=== PATIENT | female | born 1980 | race Caucasian/White ===

== ENCOUNTER 2017-12-19 12:42 | Emergency (ER) | payer BC ==
[~2017-12-19] VITALS: Ht 170.2 cm; Wt 115.7 kg
[2017-12-19 12:51] VITALS: BP 141/81
[2017-12-19] MEDS ORDERED: LORazepam 1 MG TABLET PO ONE (13:15)
--- NOTE | 2017-12-19 13:20 | RAD ---
EXAM: Chest, single view. HISTORY: Chest pain. COMPARISON: None. FINDINGS: A frontal view of the chest is obtained. There is no infiltrate, effusion or pneumothorax. The heart is normal in size. IMPRESSION: No acute pulmonary finding. Electronically signed by: Michaela Zamora MD (12/19/2017 1:17 PM) [id number]
[2017-12-19 13:55] LABS: ALBUMIN 3.6 g/dL (3.4-5.0); CALCIUM 9.2 mg/dL (8.5-10.1); CREATININE 0.9 mg/dL (0.6-1.0); DIRECT BILIRUBIN 0.1 mg/dL (0.0-0.2); GFR 70.1; POTASSIUM 3.8 mmol/L (3.5-5.1); TOTAL BILIRUBIN 0.5 mg/dL (0.2-1.0)
[2017-12-19 13:57] LABS: BASO % 0 % (0-3); EOS % 0 % (0-3); HEMATOCRIT 40.3 % (36.0-47.0); HEMOGLOBIN 13.7 g/dL (12.0-15.5); LYMPH # 1.1 x10^3/uL (1.0-4.8); LYMPH % 11 % (24-48); MEAN CORPUSCULAR HEMOGLOBIN 29 pg (25-35); MEAN CORPUSCULAR HGB CONC 34 g/dL (31-37); MEAN CORPUSCULAR VOLUME 86 fL (79-100); MONO # 0.3 x10^3/uL (0.0-1.1); MONO % 3 % (0-9); NEUT # 8.7 x10^3uL (1.8-7.7); NEUT % 86 % (31-73); PLATELET COUNT 145 x10^3/uL (140-400); RED CELL DISTRIBUTION WIDTH 14.1 % (11.5-14.5); WHITE BLOOD COUNT 10.1 x10^3/uL (4.0-11.0)
[2017-12-19] MEDS ORDERED: HYDR10TA2 PO (14:51)
--- NOTE | 2017-12-19 14:51 | PHYS DOC ---
Past History Past Medical History: Anxiety Past Surgical History: No Surgical History Drug Use: None Adult General Chief Complaint Chief Complaint: short of breath HPI HPI This is a pleasant 29-year-old female presenting to the emergency department with an episode of lightheadedness shortness of breath that started while she was at the office. She had a brief episode of double vision with a short heaviness of the chest that improved after she walked around the office. She reports it, "feels like an anxiety attack". She reports "tingling all over". She took a muscle relaxer last night Flexeril but has not taken anything today. She has a past medical history of anxiety and chronic neck pain. Past surgical history 2. Allergies none. Social history smokes. Denies drinking or IV drug use. She currently denies any symptoms that she had at the office but does feel mildly anxious. Review of systems is negative for chest pain abdominal pain nausea vomiting diaphoresis. All other review of systems is negative unless otherwise noted in history of present illness. ED course: 29-year-old female presenting to the emergency department today with an episode of shortness of breath. On arrival she is afebrile with mild high blood pressure. Saturating well on room air. Heart rate mildly high but technically not tachycardic. On examination she is alert and well-appearing without any distress. Lungs are clear to auscultation bilaterally. Heart rate is regular with a regular rhythm. No murmur. Abdomen is soft and nontender. Patient does appeared mildly anxious. Otherwise unremarkable examination. Blood work unremarkable. Chest x-ray unremarkable. Patient was given Ativan here in the emergency room which improved her symptoms significantly. The patient was then discharged home in stable condition to follow up with their primary care physician over the next 2-3 days. They were to return if their symptoms worsened or if they were concerned for any reason. [id number] discharge instructions and return precautions were given. Patient's questions were answered to their satisfaction. Patient is comfortable with plan. Of note, dobby looms pegger Gwen wrote the patient has blurred vision at 1326 in the nursing notes. Patient denies blurred vision in the emergency department. Her symptoms were very brief and had totally resolved prior to arrival and did not return while she was in the emergency room. The patient does not have double vision in the emergency department either. This was a brief episode less than 10 seconds which resolved spontaneously. Review of Systems Review of Systems SEE ABOVE. Current Medications Current Medications Current Medications Medications (Trade) Dose Ordered Sig/Cassidy Start Time Stop Time Status Last Admin Dose Admin Lorazepam (Ativan) 1 mg 1X ONCE 12/19/17 13:15 12/19/17 13:16 DC 12/19/17 13:10 1 MG Allergies Allergies Allergies Coded Allergies Type Severity Reaction Last Updated Verified No Known Drug Allergies 12/19/17 No Physical Exam Physical Exam SEE ABOVE Constitutional: Well developed, well nourished, no acute distress, non-toxic appearance. [] HENT: Normocephalic, atraumatic, bilateral external ears normal, oropharynx moist, no oral exudates, nose normal. [] Eyes: PERRLA, EOMI, conjunctiva normal, no discharge. [] Neck: Normal range of motion, no tenderness, supple, no stridor. [] Cardiovascular:Heart rate regular rhythm, no murmur [] Lungs & Thorax: Bilateral breath sounds clear to auscultation [] Abdomen: Bowel sounds normal, soft, no tenderness, no masses, no pulsatile masses. [] Skin: Warm, dry, no erythema, no rash. [] Back: No tenderness, no CVA tenderness. [] Extremities: No tenderness, no cyanosis, no clubbing, ROM intact, no edema. [] Neurologic: Alert and oriented X 3, normal motor function, normal sensory function, no focal deficits noted. [] Psychologic: Affect normal, judgement normal, mood normal. [] Current Patient Data Vital Signs Vital Signs Date Time Temp Pulse Resp B/P (MAP) Pulse Ox O2 Delivery O2 Flow Rate FiO2 12/19/17 12:51 98.3 95 20 98 Lab Results Laboratory Tests Test 12/19/17 13:27 White Blood Count 10.1 x10^3/uL (4.0-11.0) Red Blood Count 4.70 x10^6/uL (3.50-5.40) Hemoglobin 13.7 g/dL (12.0-15.5) Hematocrit 40.3 % (36.0-47.0) Mean Corpuscular Volume 86 fL (79-100) Mean Corpuscular Hemoglobin 29 pg (25-35) Mean Corpuscular Hemoglobin Concent 34 g/dL (31-37) Red Cell Distribution Width 14.1 % (11.5-14.5) Platelet Count 145 x10^3/uL (140-400) Neutrophils (%) (Auto) 86 % (31-73) H Lymphocytes (%) (Auto) 11 % (24-48) L Monocytes (%) (Auto) 3 % (0-9) Eosinophils (%) (Auto) 0 % (0-3) Basophils (%) (Auto) 0 % (0-3) Neutrophils # (Auto) 8.7 x10^3uL (1.8-7.7) H Lymphocytes # (Auto) 1.1 x10^3/uL (1.0-4.8) Monocytes # (Auto) 0.3 x10^3/uL (0.0-1.1) Eosinophils # (Auto) 0.0 x10^3/uL (0.0-0.7) Basophils # (Auto) 0.0 x10^3/uL (0.0-0.2) Sodium Level 138 mmol/L (136-145) Potassium Level 3.8 mmol/L (3.5-5.1) Chloride Level 105 mmol/L (98-107) Carbon Dioxide Level 22 mmol/L (21-32) Anion Gap 11 (6-14) Blood Urea Nitrogen 8 mg/dL (7-20) Creatinine 0.9 mg/dL (0.6-1.0) Estimated GFR (Cockcroft-Gault) 70.1 Glucose Level 103 mg/dL (70-99) H Calcium Level 9.2 mg/dL (8.5-10.1) Total Bilirubin 0.5 mg/dL (0.2-1.0) Direct Bilirubin 0.1 mg/dL (0.0-0.2) Aspartate Amino Transferase (AST) 11 U/L (15-37) L Alanine Aminotransferase (ALT) 14 U/L (14-59) Alkaline Phosphatase 79 U/L (46-116) Troponin I Quantitative < 0.017 ng/mL (0-0.055) Total Protein 7.0 g/dL (6.4-8.2) Albumin 3.6 g/dL (3.4-5.0) Lipase 66 U/L (73-393) L EKG EKG [] Radiology/Procedures Radiology/Procedures [] Course & Med Decision Making Course & Med Decision Making Pertinent Labs and Imaging studies reviewed. (See chart for details) [] Dragon Disclaimer Dragon Disclaimer This electronic medical record was generated, in whole or in part, using a voice recognition dictation system. Departure Departure: Impression: Primary Impression: Shortness of breath Disposition: HOME, SELF-CARE Condition: STABLE Referrals: BENITO RUBIO (PCP) Patient Instructions: Shortness of Breath, [id number] Additional Instructions: Thank you for allowing us to participate in your care today. Followup with your primary care physician in 3 days if your symptoms do not improve. Call your Primary Doctor tomorrow and inform them of your visit today. If you do not have a primary care provider you can ask for a list of our primary care providers. Return to the emergency department you have any new or concerning findings. This should be evaluated by the primary care physician and any necessary consulting services for continued management within a few days after discharge. Return to emergency room if you have any new or concerning symptoms including but not limited to fever, chills, nausea, vomiting, intractable pain, any new rashes, chest pain, shortness of air, uncontrolled bleeding, difficulty breathing, and/or vision loss. Scripts Hydroxyzine Hcl (HYDROXYZINE HCL) 10 Mg Tablet 10 MG PO PRN QHS Y for ANXIETY / AGITATION, #7 TAB Prov: DAVID SANCHEZ MD 12/19/17 DAVID SANCHEZ MD Dec 19, 2017 14:51
== END 2017-12-19 15:05 | disposition home or self-care (01) ==
LOC: ER 12:42
DX: R06.02 Shortness of breath (principal); R42 Dizziness and giddiness; F41.9 Anxiety disorder, unspecified; G89.29 Other chronic pain
CPT/HCPCS: 36415; 71045; 80048; 80076; 83690; 84484; 85025; 99285-25

== ENCOUNTER 2019-01-26 15:42 | Emergency (ER) | payer BC ==
[~2019-01-26] VITALS: Ht 170.2 cm; Wt 112.6 kg
[~2019-01-26 15:42] MED LIST: HYDR10TA2 PO
[2019-01-26] MEDS ORDERED: IV NORMAL SALINE 1,000ML 1,000 ML IV SCH (16:13)
[2019-01-26] MEDS ORDERED: ASPIRIN 81 MG TAB.CHEW PO ONE (16:15)
--- NOTE | 2019-01-26 16:20 | PHYS DOC ---
Past History Past Medical History: Anxiety (PRIMO DIALLO MD) Past Surgical History: No Surgical History (PRIMO DIALLO MD) Alcohol Use: Occasionally Drug Use: None (PRIMO DIALLO MD) Adult General Chief Complaint Chief Complaint: DIZZY/LIGHT HEADED HPI HPI Patient is a 38 year old female who presents with complaint of sudden onset dizziness, shortness of breath, and tingling through the shoulders. Patient states that her symptoms started shortly prior to arrival. Patient states that she started to feel very lightheaded and short of breath, but started feeling tingling started in her right shoulder and ran across to her left shoulder. Denied any substernal chest pain. States that her shortness of breath comes and goes. Denies any history of known cardiac or pulmonary disease. Does have history of anxiety and is currently on Zoloft medication. Notes that she recently experienced the in the family and states that they had a yesterday for her [id number]. States that this could be contributing to her current stress levels. Has not taken any medications for her symptoms since onset. States overall her symptoms have improved but still feels very anxious at this time. (PRIMO DIALLO MD) Review of Systems Review of Systems Constitutional: Denies fever or chills [] Eyes: Denies change in visual acuity, redness, or eye pain [] HENT: Denies nasal congestion or sore throat [] Respiratory: Shortness of breath[] Cardiovascular: Denies chest pain or edema[] GI: Denies abdominal pain, nausea, vomiting, bloody stools or diarrhea [] : Denies dysuria or hematuria [] Musculoskeletal: Denies back pain or joint pain [] Integument: Denies rash or skin lesions [] Neurologic: Dizziness, lightheadedness, tingling in her shoulders and bilateral upper extremities, denies focal weakness [] All other systems were reviewed and found to be within normal limits, except as documented in this note. (PRIMO DIALLO MD) Current Medications Current Medications Current Medications Medications (Trade) Dose Ordered Sig/Cassidy Start Time Stop Time Status Last Admin Dose Admin Aspirin (Children'S Aspirin) 324 mg 1X ONCE 01/26/19 16:15 01/26/19 16:16 UNV Lorazepam (Ativan) 1 mg 1X ONCE 01/26/19 16:15 01/26/19 16:16 UNV Sodium Chloride 1,000 ml @ 1,000 mls/hr Q1H 01/26/19 16:13 01/26/19 17:12 UNV (PRIMO DIALLO MD) Allergies Allergies Allergies Coded Allergies Type Severity Reaction Last Updated Verified No Known Drug Allergies 12/19/17 No (PRIMO DIALLO MD) Physical Exam Physical Exam Constitutional: Alert, afebrile, appears anxious. [] HENT: Normocephalic, atraumatic, bilateral external ears normal, oropharynx moist, no oral exudates, nose normal. [] Eyes: PERRLA, EOMI, conjunctiva normal, no discharge. [] Neck: Normal range of motion, no tenderness, supple, no stridor. [] Cardiovascular:Heart rate regular rhythm, no murmur [] Lungs & Thorax: Bilateral breath sounds clear to auscultation [] Abdomen: Bowel sounds normal, soft, no tenderness, no masses, no pulsatile masses. [] Skin: Warm, dry, no erythema, no rash. [] Back: No tenderness, no CVA tenderness. [] Extremities: No tenderness, no cyanosis, no clubbing, ROM intact, no edema. [] Neurologic: Alert and oriented X 3, normal motor function, normal sensory function, no focal deficits noted. [] (PRIMO DIALLO MD) Current Patient Data Vital Signs Vital Signs Date Time Temp Pulse Resp B/P (MAP) Pulse Ox O2 Delivery O2 Flow Rate FiO2 01/26/19 15:52 98.3 82 18 99 Room Air 01/26/19 15:51 170/100 (123) Lab Results Laboratory Tests Test 01/26/19 16:02 White Blood Count 8.9 x10^3/uL Red Blood Count 4.32 x10^6/uL Hemoglobin 12.4 g/dL Hematocrit 37.0 % Mean Corpuscular Volume 86 fL Mean Corpuscular Hemoglobin 29 pg Mean Corpuscular Hemoglobin Concent 33 g/dL Red Cell Distribution Width 14.5 % Platelet Count 174 x10^3/uL Neutrophils (%) (Auto) 64 % Lymphocytes (%) (Auto) 29 % Monocytes (%) (Auto) 4 % Eosinophils (%) (Auto) 2 % Basophils (%) (Auto) 1 % Neutrophils # (Auto) 5.7 x10^3uL Lymphocytes # (Auto) 2.6 x10^3/uL Monocytes # (Auto) 0.4 x10^3/uL Eosinophils # (Auto) 0.2 x10^3/uL Basophils # (Auto) 0.1 x10^3/uL D-Dimer (Abbie) 0.27 mg/L Sodium Level 142 mmol/L Potassium Level 3.5 mmol/L Chloride Level 106 mmol/L Carbon Dioxide Level 25 mmol/L Anion Gap 11 Blood Urea Nitrogen 8 mg/dL Creatinine 0.9 mg/dL Estimated GFR (Cockcroft-Gault) 69.7 BUN/Creatinine Ratio 9 Glucose Level 96 mg/dL Calcium Level 9.1 mg/dL Magnesium Level 1.9 mg/dL Total Bilirubin 0.5 mg/dL Aspartate Amino Transf (AST/SGOT) 14 U/L Alanine Aminotransferase (ALT/SGPT) 15 U/L Alkaline Phosphatase 78 U/L Creatine Kinase 75 U/L Creatine Kinase MB (Mass) < 0.5 ng/mL Creatine Kinase MB Relative Index 0.7 % Troponin I Quantitative < 0.017 ng/mL Total Protein 6.9 g/dL Albumin 3.5 g/dL Albumin/Globulin Ratio 1.0 Current Medications Medications (Trade) Dose Ordered Sig/Cassidy Route PRN Reason Start Time Stop Time Status Last Admin Dose Admin Aspirin (Children'S Aspirin) 324 mg 1X ONCE PO 01/26/19 16:15 01/26/19 16:19 DC 01/26/19 16:28 Lorazepam (Ativan) 1 mg 1X ONCE IV 01/26/19 16:15 01/26/19 16:19 DC 01/26/19 16:28 Sodium Chloride 1,000 ml @ 1,000 mls/hr Q1H IV 01/26/19 16:13 01/26/19 17:12 DC 01/26/19 16:28 (PRIMO DIALLO MD) EKG EKG Interpreted by me: Heart rate 69, sinus rhythm, normal intervals, normal axis, no acute ST/T-wave abnormalities present[] (PRIOM DIALLO MD) EKG My interpretation of EKG completed at 1811 hrs. shows a sinus rhythm at 79 bpm. There are some nonspecific contour changes anterior lateral leads. Changes are felt to be due to repositioning of leads from the first EKG. 2nd Trop. pending at this time. (ARISTEO NO MD) Radiology/Procedures Radiology/Procedures [address] [id number] IMAGING REPORT Signed PATIENT: YAHIR BRIGGS ACCOUNT: [id number] : 1980 LOCATION: ER AGE: 38 SEX: F EXAM STATUS: REG ER ORD. PHYSICIAN: PRIMO DIALLO MD REASON: dizziness, shortness of breath PROCEDURE: PORTABLE CHEST 1V PORTABLE CHEST 1V Clinical Indication: dizziness, chest pain Comparison: AP chest December 19, 2017. Findings: The cardiomediastinal silhouette is normal. Lungs are clear. There is no pneumothorax. No pleural effusion is appreciated. No acute bone abnormality. IMPRESSION: No acute cardiopulmonary process. Electronically signed by: Delvis Damon MD (01/26/2019 4:35 PM) [id number] DICTATED AND SIGNED BY: DELVIS DAMON MD DATE: 01/26/19 5208 CC: PRIMO DIALLO MD; BENITO RUBIO ~ [] (PRIMO DIALLO MD) Course & Med Decision Making Course & Med Decision Making Pertinent Labs and Imaging studies reviewed. (See chart for details) HEART score is 1, placing patient in low risk category for major acute cardiac event. Patient was treated with aspirin and Ativan. On reevaluation symptoms have completely resolved at this time. The patient is due to have a second set of cardiac enzymes and EKG for rule out of acute myocardial ischemia. This will be followed up by Dr. No who accepted care of patient at 1739.[] (PRIMO DIALLO MD) Course & Med Decision Making Pt. reporting she feels much better. Pt. states it has been a very stress full week with of brother in law and surrounding events. Patient declining admission. Patient encouraged not to smoke. Patient encouraged take a daily aspirin. Patient encouraged to return if any concerns tonight. Patient follow-up primary care. Reviewed the patient feels did not normally have classic signs of NC. Must be very cautious and return if any concerns. Patient has no history of family members with early onset coronary artery disease. Patient does smoke. Patient's heart score is 1-2. advised he will bring her back immediately if any problems. (ARISTEO NO MD) Dragon Disclaimer Dragon Disclaimer This electronic medical record was generated, in whole or in part, using a voice recognition dictation system. (PRIMO DIALLO MD) Departure Departure: Impression: Primary Impression: Acute stress reaction Referrals: BENITO RUBIO (PCP) Discharge Summary Visit Information Final Diagnosis Problems Medical Problems: (1) Acute stress reaction Status: Acute (ARISTEO NO MD) Brief Hospital Course Allergies Allergies Coded Allergies Type Severity Reaction Last Updated Verified No Known Drug Allergies 12/19/17 No Vital Signs Vital Signs Date Time Temp Pulse Resp B/P (MAP) Pulse Ox O2 Delivery O2 Flow Rate FiO2 01/26/19 18:52 76 18 132/57 (82) 99 Room Air 01/26/19 15:52 98.3 Lab Results Laboratory Tests Test 01/26/19 16:02 01/26/19 17:08 01/26/19 17:52 White Blood Count 8.9 x10^3/uL (4.0-11.0) Red Blood Count 4.32 x10^6/uL (3.50-5.40) Hemoglobin 12.4 g/dL (12.0-15.5) Hematocrit 37.0 % (36.0-47.0) Mean Corpuscular Volume 86 fL (79-100) Mean Corpuscular Hemoglobin 29 pg (25-35) Mean Corpuscular Hemoglobin Concent 33 g/dL (31-37) Red Cell Distribution Width 14.5 % (11.5-14.5) Platelet Count 174 x10^3/uL (140-400) Neutrophils (%) (Auto) 64 % (31-73) Lymphocytes (%) (Auto) 29 % (24-48) Monocytes (%) (Auto) 4 % (0-9) Eosinophils (%) (Auto) 2 % (0-3) Basophils (%) (Auto) 1 % (0-3) Neutrophils # (Auto) 5.7 x10^3uL (1.8-7.7) Lymphocytes # (Auto) 2.6 x10^3/uL (1.0-4.8) Monocytes # (Auto) 0.4 x10^3/uL (0.0-1.1) Eosinophils # (Auto) 0.2 x10^3/uL (0.0-0.7) Basophils # (Auto) 0.1 x10^3/uL (0.0-0.2) D-Dimer (Abbie) 0.27 mg/L (0.00-0.50) Sodium Level 142 mmol/L (136-145) Potassium Level 3.5 mmol/L (3.5-5.1) Chloride Level 106 mmol/L (98-107) Carbon Dioxide Level 25 mmol/L (21-32) Anion Gap 11 (6-14) Blood Urea Nitrogen 8 mg/dL (7-20) Creatinine 0.9 mg/dL (0.6-1.0) Estimated GFR (Cockcroft-Gault) 69.7 BUN/Creatinine Ratio 9 (6-20) Glucose Level 96 mg/dL (70-99) Calcium Level 9.1 mg/dL (8.5-10.1) Magnesium Level 1.9 mg/dL (1.8-2.4) Total Bilirubin 0.5 mg/dL (0.2-1.0) Aspartate Amino Transf (AST/SGOT) 14 U/L (15-37) Alanine Aminotransferase (ALT/SGPT) 15 U/L (14-59) Alkaline Phosphatase 78 U/L (46-116) Creatine Kinase 75 U/L (26-192) Creatine Kinase MB (Mass) < 0.5 ng/mL (0.0-3.6) Creatine Kinase MB Relative Index 0.7 % (0-4) Troponin I Quantitative < 0.017 ng/mL (0-0.055) < 0.017 ng/mL (0-0.055) Total Protein 6.9 g/dL (6.4-8.2) Albumin 3.5 g/dL (3.4-5.0) Albumin/Globulin Ratio 1.0 (1.0-1.7) Urine Collection Type Unknown Urine Color Yellow Urine Clarity Hazy Urine pH 6.5 Urine Specific [place] 1.015 Urine Protein Neg (NEG-TRACE) Urine Glucose (UA) Neg mg/dL (NEG) Urine Ketones (Stick) Neg mg/dL (NEG) Urine Blood Neg (NEG) Urine Nitrite Neg (NEG) Urine Bilirubin Neg (NEG) Urine Urobilinogen Dipstick 0.2 mg/dL (0.2 mg/dL) Urine Leukocyte Esterase Neg (NEG) Urine RBC 0 /HPF (0-2) Urine WBC 0 /HPF (0-4) Urine Squamous Epithelial Cells Few /LPF Urine Bacteria Few /HPF (0-FEW) Urine Opiates Screen Neg (NEG) Urine Methadone Screen Neg (NEG) Urine Barbiturates Neg (NEG) Urine Phencyclidine Screen Neg (NEG) Urine Amphetamine/Methamphetamine Neg (NEG) Urine Benzodiazepines Screen Neg (NEG) Urine Cocaine Screen Neg (NEG) Urine Cannabinoids Screen Neg (NEG) Urine Ethyl Alcohol Neg (NEG) Brief Hospital Course Ms. Briggs is a 38 old female who presented with Stress reaction. (ARISTEO NO MD) Discharge Information Condition at Discharge: Improved, Stable Disposition/Orders: D/C to Home Dischare Medications Current Medications Aspirin (Children'S Aspirin) 324 mg 1X ONCE PO Last administered on 01/26/19at 16:28; Start 01/26/19 at 16:15; Stop 01/26/19 at 16:19; Status DC Lorazepam (Ativan) 1 mg 1X ONCE IV Last administered on 01/26/19at 16:28; Start 01/26/19 at 16:15; Stop 01/26/19 at 16:19; Status DC Sodium Chloride 1,000 ml @ 1,000 mls/hr Q1H IV Last administered on 01/26/19at 16:28; Start 01/26/19 at 16:13; Stop 01/26/19 at 17:12; Status DC Active Scripts Active Hydroxyzine Hcl 10 Mg Tablet 10 Mg PO PRN QHS PRN (ARISTEO NO MD) Dragon Disclaimer This chart was dictated in whole or in part using Voice Recognition software in a busy, high-work load, and often noisy Emergency Department environment. It may contain unintended and wholly unrecognized errors or omissions. (ARISTEO NO MD) PRIMO DIALLO MD Jan 26, 2019 16:20 ARISTEO NO MD Jan 26, 2019 18:25
[2019-01-26 16:30] LABS: BASO # 0.1 x10^3/uL (0.0-0.2); BASO % 1 % (0-3); EOS # 0.2 x10^3/uL (0.0-0.7); EOS % 2 % (0-3); HEMOGLOBIN 12.4 g/dL (12.0-15.5); LYMPH # 2.6 x10^3/uL (1.0-4.8); LYMPH % 29 % (24-48); MEAN CORPUSCULAR HEMOGLOBIN 29 pg (25-35); MEAN CORPUSCULAR HGB CONC 33 g/dL (31-37); MEAN CORPUSCULAR VOLUME 86 fL (79-100); MONO # 0.4 x10^3/uL (0.0-1.1); MONO % 4 % (0-9); NEUT # 5.7 x10^3uL (1.8-7.7); NEUT % 64 % (31-73); PLATELET COUNT 174 x10^3/uL (140-400); RED BLOOD COUNT 4.32 x10^6/uL (3.50-5.40); RED CELL DISTRIBUTION WIDTH 14.5 % (11.5-14.5); WHITE BLOOD COUNT 8.9 x10^3/uL (4.0-11.0)
--- NOTE | 2019-01-26 16:38 | RAD ---
PORTABLE CHEST 1V Clinical Indication: dizziness, chest pain Comparison: AP chest December 19, 2017. Findings: The cardiomediastinal silhouette is normal. Lungs are clear. There is no pneumothorax. No pleural effusion is appreciated. No acute bone abnormality. IMPRESSION: No acute cardiopulmonary process. Electronically signed by: Adrián Damon MD (01/26/2019 4:35 PM) [id number]
[2019-01-26 16:57] LABS: ALBUMIN 3.5 g/dL (3.4-5.0); ALK PHOS 78 U/L (46-116); ALT (SGPT) 15 U/L (14-59); ANION GAP 11 (6-14); AST (SGOT) 14 U/L (15-37); BLOOD UREA NITROGEN 8 mg/dL (7-20); BUN/CREATININE RATIO 9 (6-20); CALCIUM 9.1 mg/dL (8.5-10.1); CARBON DIOXIDE 25 mmol/L (21-32); CHLORIDE 106 mmol/L (98-107); CREATININE 0.9 mg/dL (0.6-1.0); GFR 69.7; GLUCOSE 96 mg/dL (70-99); MAGNESIUM 1.9 mg/dL (1.8-2.4); POTASSIUM 3.5 mmol/L (3.5-5.1); SODIUM 142 mmol/L (136-145); TOTAL BILIRUBIN 0.5 mg/dL (0.2-1.0); TOTAL PROTEIN 6.9 g/dL (6.4-8.2)
[2019-01-26 17:38] LABS: AMPHETAMINE/METHAMPHETAMINE NEG (NEG); BARBITURATES NEG (NEG); BENZODIAZEPINES NEG (NEG); CANNABINOIDS NEG (NEG); COCAINE NEG (NEG); METHADONE NEG (NEG); OPIATES NEG (NEG); PHENCYCLIDINE NEG (NEG)
[2019-01-26 17:40] LABS: BILIRUBIN,URINE NEG (NEG); CLARITY,URINE HAZY; COLOR,URINE YELLOW; GLUCOSE,URINE NEG (NEG)
[2019-01-26 17:41] LABS: BACTERIA,URINE FEW /HPF (0-FEW); NITRITE,URINE NEG (NEG); RBC,URINE 0 /HPF (0-2); SQUAMOUS EPITHELIAL CELL,UR FEW /LPF; UROBILINOGEN,URINE 0.2 mg/dL (0.2 mg/dL); WBC,URINE 0 /HPF (0-4)
[2019-01-26 18:52] VITALS: BP 132/57
--- NOTE | 2019-01-27 17:09 | EKG ---
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
--- NOTE | 2019-01-27 17:09 | EKG ---
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 Electronically Signed On 01-31-2019 12:12:54 CDT by Wil Carpio
== END 2019-01-26 18:53 | disposition home or self-care (01) ==
LOC: ER 15:42
DX: F43.0 Acute stress reaction (principal); R42 Dizziness and giddiness; F41.9 Anxiety disorder, unspecified
CPT/HCPCS: 36415; 71045; 80053; 80307; 81001; 82553; 83735; 84484; 85025; 85379; 93005; 96361; 96374; 99285; J2060; J7030

== ENCOUNTER 2020-02-14 14:30 | Emergency (ER) | payer BC ==
[~2020-02-14] VITALS: Ht 175.3 cm; Wt 118.5 kg
[2020-02-14] MEDS ORDERED: KETOROLAC 30 MG/ML VIAL. IVP ONE (15:00)
--- NOTE | 2020-02-14 15:02 | PHYS DOC ---
Past History Past Medical History: Anxiety, High Cholesterol Past Surgical History: Smoking: Cigarettes Alcohol Use: Occasionally Drug Use: None General Adult EDM: Chief Complaint: CHEST PAIN HPI: HPI: Patient is a 39-year-old female who presents to the emergency department for evaluation. She states that for the past several days she has been having constant left upper chest discomfort, worse with palpation, and feeling somewhat like her typical anxiety attacks, although she states her Valium did not help her today. She has not had any nausea, vomiting, diaphoresis, pleuritic chest pain, exertional pain, dizziness or lightheadedness. She has no family history of premature onset coronary artery disease. There are no alleviating or exacerbating factors to her symptoms except as noted above. Review of Systems: Review of Systems: Constitutional: Denies fever or chills Eyes: Denies change in visual acuity HENT: Denies nasal congestion or sore throat Respiratory: Denies cough or shortness of breath Cardiovascular: Denies orthopnea or edema GI: Denies abdominal pain, nausea, vomiting, bloody stools or diarrhea : Denies dysuria Musculoskeletal: Denies back pain or joint pain Integument: Denies rash Neurologic: Denies headache, focal weakness or sensory changes Endocrine: Denies polyuria or polydipsia Lymphatic: Denies swollen glands Psychiatric: Denies depression or anxiety Heart Score: HEART Score for Chest Pain: HEART Score for Chest Pain Response (Comments) Value History Slighlty/Non-Suspicious 0 ECG Normal 0 Age < 45 0 Risk Factors >3 Risk Factors or Hx CAD (Smoking, hyperlipidemia, obesity) 2 Troponin < Normal Limit 0 Total 2 Risk Factors: Risk Factors: DM, Current or recent (<one month) smoker, HTN, HLP, family history of CAD, obesity. Risk Scores: Score 0 - 3: 2.5% MACE over next 6 weeks - Discharge Home Score 4 - 6: 20.3% MACE over next 6 weeks - Admit for Clinical Observation Score 7 - 10: 72.7% MACE over next 6 weeks - Early Invasive Strategies Current Medications: Current Meds: Current Medications Medications (Trade) Dose Ordered Sig/Cassidy Start Time Stop Time Status Last Admin Dose Admin Ketorolac Tromethamine (Toradol 30mg Vial) 30 mg 1X ONCE 02/14/20 15:00 02/14/20 15:01 Allergies: Allergies: Allergies Coded Allergies Type Severity Reaction Last Updated Verified No Known Drug Allergies 12/19/17 No Physical Exam: PE: PHYSICAL EXAM: CONSTITUTIONAL: Well developed, well nourished HEAD: normocephalic, atraumatic EENT: PERRL, EOMI. Conjunctivae normal color, sclerae non-icteric; moist mucous membranes. NECK: Supple, non-tender; no meningismus. LUNGS: Lungs CTA, breathing even and unlabored. Normal air movement. HEART: Regular rate and rhythm, no murmur CHEST: No deformity; palpation of the left anterior chest wall reproduces the patient's pain ABDOMEN: The abdomen is soft, and non-tender, no masses or bruits. EXTREM: Normal ROM; no deformity, no calf tenderness. Normal pulses palpable in all extremities. There is no pedal edema. SKIN: No rash; no diaphoresis NEURO: Alert; normal speech and cognition; CN's grossly intact; strength grossly intact without focal deficit. BACK: No CVA TTP. Current Patient Data: Labs: Laboratory Tests Test 02/14/20 14:45 White Blood Count 7.2 x10^3/uL Red Blood Count 4.27 x10^6/uL Hemoglobin 12.2 g/dL Hematocrit 37.1 % Mean Corpuscular Volume 87 fL Mean Corpuscular Hemoglobin 29 pg Mean Corpuscular Hemoglobin Concent 33 g/dL Red Cell Distribution Width 14.6 % Platelet Count 158 x10^3/uL Neutrophils (%) (Auto) 59 % Lymphocytes (%) (Auto) 34 % Monocytes (%) (Auto) 5 % Eosinophils (%) (Auto) 2 % Basophils (%) (Auto) 1 % Neutrophils # (Auto) 4.2 x10^3uL Lymphocytes # (Auto) 2.4 x10^3/uL Monocytes # (Auto) 0.3 x10^3/uL Eosinophils # (Auto) 0.2 x10^3/uL Basophils # (Auto) 0.1 x10^3/uL Sodium Level 139 mmol/L Potassium Level 3.8 mmol/L Chloride Level 105 mmol/L Carbon Dioxide Level 26 mmol/L Anion Gap 8 Blood Urea Nitrogen 13 mg/dL Creatinine 1.1 mg/dL Estimated GFR (Cockcroft-Gault) 55.0 BUN/Creatinine Ratio 12 Glucose Level 93 mg/dL Calcium Level 9.0 mg/dL Total Bilirubin 0.4 mg/dL Aspartate Amino Transf (AST/SGOT) 14 U/L Alanine Aminotransferase (ALT/SGPT) 16 U/L Alkaline Phosphatase 80 U/L Troponin I Quantitative < 0.017 ng/mL Total Protein 6.6 g/dL Albumin 3.7 g/dL Albumin/Globulin Ratio 1.3 Current Medications Medications (Trade) Dose Ordered Sig/Cassidy Route PRN Reason Start Time Stop Time Status Last Admin Dose Admin Ketorolac Tromethamine (Toradol 30mg Vial) 30 mg 1X ONCE IVP 02/14/20 15:00 02/14/20 15:01 DC 02/14/20 15:08 Lorazepam (Ativan Inj) 1 mg 1X ONCE IVP 02/14/20 15:15 02/14/20 15:16 DC 02/14/20 15:09 Vital Signs: Vital Signs Date Time Temp Pulse Resp B/P (MAP) Pulse Ox O2 Delivery O2 Flow Rate FiO2 02/14/20 14:46 87 14 123/89 (100) 99 Room Air 02/14/20 14:36 98.5 EKG: EKG: Normal sinus rhythm with a normal rate, normal axis, normal intervals, there are no acute ischemic ST/T changes. [] Radiology/Procedures: Radiology/Procedures: PROCEDURE: CHEST PA & LATERAL Two-view chest dated 02/14/2020. Comparison made to 01/26/2019. CLINICAL INDICATION: Chest pain. FINDINGS: PA and lateral views obtained. Heart and mediastinal contours within normal limits. Lungs are clear. No consolidation or pleural effusion. No pneumothorax. IMPRESSION: No acute radiographic abnormality. [] Course & Med Decision Making: Course & Med Decision Making Pertinent Labs and Imaging studies reviewed. (See chart for details) [] 3:50 PM: The patient's condition remains stable, she is feeling significantly better and her symptoms have resolved. I discussed limitations of ED cardiac evaluation to definitively rule out acute coronary syndrome but we both suspect that her symptoms are not cardiac related and joint decision-making was used for close outpatient follow-up. The patient is currently asymptomatic. Return precautions were discussed in detail. Dragon Disclaimer: Dragon Disclaimer: This electronic medical record was generated, in whole or in part, using a voice recognition dictation system. Departure Departure: Impression: Primary Impression: Chest pain Disposition: HOME/RESIDENCE PRIOR TO ADM Condition: STABLE Referrals: DORINDA ENG (PCP) Patient Instructions: Anxiety and Panic Attacks, Chest Pain (Nonspecific), Chest Wall Pain, Musculoskeletal Pain NEO KAYE MD February 14, 2020 15:02
[2020-02-14 15:04] LABS: BASO # 0.1 x10^3/uL (0.0-0.2); BASO % 1 % (0-3); EOS # 0.2 x10^3/uL (0.0-0.7); EOS % 2 % (0-3); HEMATOCRIT 37.1 % (36.0-47.0); HEMOGLOBIN 12.2 g/dL (12.0-15.5); LYMPH # 2.4 x10^3/uL (1.0-4.8); LYMPH % 34 % (24-48); MEAN CORPUSCULAR HEMOGLOBIN 29 pg (25-35); MEAN CORPUSCULAR HGB CONC 33 g/dL (31-37); MEAN CORPUSCULAR VOLUME 87 fL (79-100); MONO # 0.3 x10^3/uL (0.0-1.1); MONO % 5 % (0-9); NEUT # 4.2 x10^3uL (1.8-7.7); NEUT % 59 % (31-73); PLATELET COUNT 158 x10^3/uL (140-400); RED BLOOD COUNT 4.27 x10^6/uL (3.50-5.40); RED CELL DISTRIBUTION WIDTH 14.6 % (11.5-14.5); WHITE BLOOD COUNT 7.2 x10^3/uL (4.0-11.0)
--- NOTE | 2020-02-14 15:12 | RAD ---
Two-view chest dated 02/14/2020. Comparison made to 01/26/2019. CLINICAL INDICATION: Chest pain. FINDINGS: PA and lateral views obtained. Heart and mediastinal contours within normal limits. Lungs are clear. No consolidation or pleural effusion. No pneumothorax. IMPRESSION: No acute radiographic abnormality. Electronically signed by: Bin Foss MD (02/14/2020 3:09 PM) [facility]
[2020-02-14 15:14] LABS: CREATININE 1.1 mg/dL (0.6-1.0); POTASSIUM 3.8 mmol/L (3.5-5.1)
[2020-02-14 15:20] LABS: ALBUMIN 3.7 g/dL (3.4-5.0); ALBUMIN/GLOBULIN RATIO 1.3 (1.0-1.7); TOTAL BILIRUBIN 0.4 mg/dL (0.2-1.0); TOTAL PROTEIN 6.6 g/dL (6.4-8.2)
[2020-02-14 15:34] VITALS: BP 131/81
--- NOTE | 2020-02-15 07:10 | EKG ---
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
== END 2020-02-14 16:05 | disposition home or self-care (01) ==
LOC: ER 14:30
DX: R07.89 Other chest pain (principal); F41.9 Anxiety disorder, unspecified; E78.00 Pure hypercholesterolemia, unspecified; F17.210 Nicotine dependence, cigarettes, uncomplicated
CPT/HCPCS: 36415; 71046; 80053; 84484; 85025; 93005; 96374; 96375; 99285; J1885; J2060

== ENCOUNTER → 2020-04-21 | Outpatient (CLI) | payer BC ==
--- NOTE | 2020-04-21 15:30 | RAD ---
EXAM: BILATERAL DIGITAL 3D SCREENING MAMMOGRAPHY. HISTORY: Routine mammographic screening. TECHNIQUE: Bilateral digital 3D and tomographic images were obtained in CC and MLO projections. Computer-aided detection was applied. COMPARISON: None available. This is interpreted as a baseline study. COMPOSITION: B. There are scattered areas of fibroglandular density. FINDINGS: A nodule superolaterally on the right is most likely an intraparenchymal lymph node. Round calcifications on the right are benign. There is no suspicious finding on the left. BI-RADS CATEGORY 0: Incomplete--Needs Additional Imaging Evaluation. RECOMMENDATION: 1. Sonography of a nodule superolaterally on the right to establish baseline. Electronically signed by: Pavan Willson MD (04/21/2020 3:27 PM) [id number]
== END ==
LOC: MAMMO 09:57
PROVIDERS: ATTEND Obstetrics & Gynecology
DX: Z12.31 Encounter for screening mammogram for malignant neoplasm of breast (principal); N63.10 Unspecified lump in the right breast, unspecified quadrant
CPT/HCPCS: 77063; 77067

== ENCOUNTER → 2020-04-28 | Outpatient (CLI) | payer BC ==
--- NOTE | 2020-04-28 17:07 | RAD ---
Limited right breast ultrasound. INDICATION: Screening recall for mass in the upper outer right breast. COMPARISON: 04/21/2020 bilateral mammogram. TECHNIQUE: Grayscale, color and spectral Doppler imaging of the upper-outer quadrant right breast was performed. FINDINGS: At the right 10:00 position 9 cm from the nipple, a 5 mm intramammary lymph node is identified which corresponds with the mammographic finding recalled from screening. IMPRESSION: Benign intramammary lymph node in the upper outer right breast accounts for the mammographic finding recalled from screening. No evidence of malignancy. Recommend return to routine screening next due in one year. BI-RADS Category 2 Benign
== END ==
LOC: US 12:38
PROVIDERS: ATTEND Obstetrics & Gynecology
DX: N63.11 Unspecified lump in the right breast, upper outer quadrant (principal)
CPT/HCPCS: 76641

== ENCOUNTER → 2021-04-28 | Outpatient (CLI) | payer BC ==
--- NOTE | 2021-04-28 10:41 | RAD ---
PROCEDURE: MG BILAT SCREEN+DELGADO HISTORY: The patient is 41 years old and is seen for Reason: SCREENING / Spl. Instructions: / Histor y: . COMPARISON: April 21, 2020 TECHNIQUE: CC and MLO views of both breasts were obtained. Images were processed by the [employer] computer-aided detection system. DENSITY: There are scattered fibroglandular densities. FINDINGS: Right breast: Unchanged right upper outer breast mass, likely intramammary lymph node. Un changed right mid breast well-circumscribed lesion on MLO view. No new suspicious mitral calcificati on, architectural distortion or mass bilaterally. IMPRESSION: Negative. No evidence of malignancy. Recommend annual screening mammograms per [employer] guidelines. BI-RADS category 2 Benign Patient entered into a reminder system for annual screening mammogram. Electronically signed by: Rogelio Conrad DO (04/28/2021 10:38 AM) [id number]
== END ==
LOC: MAMMO 08:10
PROVIDERS: ATTEND Family Medicine
DX: Z12.31 Encounter for screening mammogram for malignant neoplasm of breast (principal); N63.11 Unspecified lump in the right breast, upper outer quadrant
CPT/HCPCS: 77063; 77067